=== PATIENT | female | born 1945 | race Caucasian/White ===

== ENCOUNTER 2019-11-10 04:53 | Inpatient (IN) | payer MEDICARE, OTHER ==
[~2019-11-10] VITALS: Ht 170.2 cm; Wt 77.2 kg
[2019-11-10] MEDS ORDERED: ONDANSETRON 2MG/ML, 2ML IVPush ONE ×2 (05:30→08:30)
[2019-11-10] MEDS: PLEASE ENTER ALLERGIES MC SCH ×2 (05:30→07:27)
[2019-11-10] MEDS ORDERED: MORPHINE SULFATE 4 MG/ML, 1ML IVPush PRN ×2 (05:30→17:00)
[2019-11-10] MEDS ORDERED: PROAIR (05:40)
[2019-11-10] MEDS ORDERED: MORPHINE SULFATE 4 MG/ML, 1ML ONE (05:44)
[2019-11-10] MEDS ORDERED: ONDANSETRON 2MG/ML, 2ML ONE ×2 (05:44→08:12)
[2019-11-10] MEDS ORDERED: OMNIPAQUE 350 MG/ML, 75ML BOTTLE ONE (05:50)
[2019-11-10 06:14] LABS: FREE T4 (FREE THYROXINE) 1.12 ng/dL (0.76-1.46); TROPONIN I < 0.015 ng/mL (0.000-0.045)
--- NOTE | 2019-11-10 06:15 | NUR ---
PT AWARE THAT WE NEED A URINE SAMPLE NEXT TIME SHE USES BATHROOM. PT PROVIDED A URINE CUP
--- NOTE | 2019-11-10 06:35 | NUR ---
PT RESTING IN BED, PT HAS NO WANTS OR NEEDS AT THIS TIME, PT ON MONITOR AND DEVELOPMENT ANALYST WILL CONTINUE TO MONITOR PT VITALS
[2019-11-10] MEDS ORDERED: FUROSEMIDE 20 MG/2 ML IV ONE (07:00)
--- NOTE | 2019-11-10 07:20 | NUR ---
TOOK REPORT FROM EDUARDO FERNANDEZ, ASSUME CARE AT THIS TIME. HOSPITALIST IN ROOM
--- NOTE | 2019-11-10 07:34 | NUR ---
SHER RAINEY MD AT BEDSIDE FOR LOW BP AND INCREASED SHARP CP
--- NOTE | 2019-11-10 07:36 | NUR ---
HOLD SHER REYES MD. GIVING 500ML NS PER MD
--- NOTE | 2019-11-10 08:11 | NUR ---
SHER RAINEY MD AT BEDSIDE FOR LOW BP
[2019-11-10] MEDS ORDERED: SODIUM CHLORIDE 0.9% 500 ML IV SCH (08:13)
--- NOTE | 2019-11-10 08:13 | NUR ---
GIVING 500ML NS PER MD AND 4 ZOFRAN
--- NOTE | 2019-11-10 08:14 | NUR ---
REPEAT EKG IN ROOM
[2019-11-10] MEDS ORDERED: DIGOXIN 0.25 MG/ML, 2ML ONE (08:26)
[2019-11-10] MEDS ORDERED: DIGOXIN 0.25 MG/ML, 2ML IVPush ONE ×3 (09:00→17:30)
[2019-11-10] MEDS ORDERED: ONDANSETRON ODT 4 MG PO PRN (10:00)
[2019-11-10] MEDS ORDERED: ONDANSETRON 2MG/ML, 2ML IVPush PRN (10:00)
[2019-11-10] MEDS ORDERED: ACETAMINOPHEN 325 MG TABLET PO PRN (10:00)
[2019-11-10 10:24] LABS: BASOPHILS # (AUTO) 0.05 x10^3/uL (0-0.1); BASOPHILS % (AUTO) 1 % (0-1); EOSINOPHILS # (AUTO) 0.02 x10^3/uL (0-0.4); EOSINOPHILS % (AUTO) 0 % (1-7); LYMPHOCYTES % (AUTO) 20 % (22-44); MD NO; MEAN CORPUSCULAR HEMOGLOBIN 28.6 pg (27.0-34.8); MEAN CORPUSCULAR HGB CONC 32.1 g/dL (32.4-35.8); MEAN CORPUSCULAR VOLUME 89.3 fL (80-100); MEAN PLATELET VOLUME 8.8 fL (7.4-10.4); MONOCYTES # (AUTO) 0.68 x10^3/uL (0.2-0.8); MONOCYTES % (AUTO) 8 % (2-9); NEUTROPHILS % (AUTO) 71 % (42-75); PLATELET COUNT 218 x10^3/uL (130-400); RED BLOOD COUNT 4.31 x10^6/uL (3.82-5.3); RED CELL DISTRIBUTION WIDTH 14.5 % (9.6-15.2)
--- NOTE | 2019-11-10 10:29 | NUR ---
HOSPITAL BED PUT IN ROOM
[2019-11-10 10:34] LABS: ALANINE AMINOTRANSFERASE 43 U/L (12-78); ALBUMIN 3.2 g/dL (3.4-5.0); ANION GAP 9 mmol/L (5-15); CALCIUM 8.5 mg/dL (8.5-10.1); CHLORIDE 111 mmol/L (98-107)
[2019-11-10 10:36] LABS: ALKALINE PHOSPHATASE 89 U/L (45-117); BILIRUBIN,TOTAL 1.4 mg/dL (0.2-1.0); TOTAL PROTEIN 6.3 g/dL (6.4-8.2)
[2019-11-10] MEDS ORDERED: RIVAROXABAN 20 MG TABLET ONE (11:40)
[2019-11-10] MEDS: RIVAROXABAN 20 MG TABLET PO SCH ×2 (11:43→17:00)
[2019-11-10 12:08] VITALS: BP 107/66
[2019-11-10 12:19] VITALS: BP 107/66
[2019-11-10 13:10] VITALS: BP 118/75
[2019-11-10 13:11] LABS: MICROSCOPIC AUTO
[2019-11-10] MEDS ORDERED: POTASSIUM CHLORIDE 20 MEQ TAB.ER.PRT PO ONE (16:30)
[2019-11-10] MEDS ORDERED: MORPHINE SULFATE 4 MG/ML, 1ML IVPush ONE (17:00)
[2019-11-10] MEDS ORDERED: NITROGLYCERIN 0.4 MG/SPRAY SL PRN (17:00)
[2019-11-10] MEDS ORDERED: NITROGLYCERIN 0.4 MG BOTTLE (25 TABS) SL PRN (17:00)
[2019-11-10] MEDS: ACETAMINOPHEN 325 MG TABLET PO SCH ×2 (17:18→19:58)
[2019-11-10 17:39] LABS: TROPONIN I < 0.015 ng/mL (0.000-0.045)
[2019-11-10] MEDS ORDERED: AMIODARONE 150 MG in DEXTROSE 5% 100 ML IV ONE (18:00)
[2019-11-10] MEDS: AMIODARONE 450 MG in DEXTROSE 5% 241 ML IV PRN (18:22)
[2019-11-10] MEDS: FILTER 0.22 MICRON IV PRN (18:23)
[2019-11-10 18:25] VITALS: BP 121/64
[2019-11-10 19:39] VITALS: BP 108/56
[2019-11-10 20:10] VITALS: BP 115/71
[2019-11-11] MEDS: ACETAMINOPHEN 325 MG TABLET PO SCH ×6 (01:00→21:46)
[2019-11-11 02:09] VITALS: BP 107/73
[2019-11-11] MEDS: AMIODARONE 450 MG in DEXTROSE 5% 241 ML IV PRN (02:21)
[2019-11-11] MEDS: FILTER 0.22 MICRON IV PRN (02:33)
[2019-11-11] MEDS ORDERED: FUROSEMIDE 10 MG/ML ORAL SOL PO ONE (03:00)
[2019-11-11] MEDS ORDERED: FUROSEMIDE 20 MG TABLET PO ONE (03:10)
[2019-11-11 05:28] LABS: ALBUMIN 2.9 g/dL (3.4-5.0); ANION GAP 5 mmol/L (5-15); CALCIUM 8.6 mg/dL (8.5-10.1); CHLORIDE 108 mmol/L (98-107); CREATININE 0.83 mg/dL (0.55-1.02)
[2019-11-11 08:20] VITALS: BP 110/71
[2019-11-11] MEDS ORDERED: DIGOXIN 0.25 MG TABLET PO SCH (09:00)
[2019-11-11] MEDS ORDERED: FUROSEMIDE 20 MG TABLET ONE (09:26)
[2019-11-11] MEDS ORDERED: FUROSEMIDE 20 MG TABLET PO SCH (09:30)
[2019-11-11] MEDS ORDERED: FUROSEMIDE 20 MG/2 ML IV ONE ×2 (11:00→15:00)
[2019-11-11] MEDS: AMIODARONE 200 MG TABLET PO SCH ×2 (11:23→21:46)
[2019-11-11] MEDS: LISINOPRIL 5 MG TABLET PO SCH (11:24)
[2019-11-11] MEDS: RIVAROXABAN 20 MG TABLET PO SCH (13:12)
[2019-11-11 13:50] VITALS: BP 110/66
[2019-11-11] MEDS ORDERED: BISACODYL 10 MG SUPP PR PRN (15:00)
[2019-11-11] MEDS ORDERED: MAGNESIUM CITRATE 300ML ORAL SOL PO ONE (15:00)
[2019-11-11] MEDS ORDERED: LACTULOSE 20 GM/30 ML UDC PO PRN (15:00)
[2019-11-11] MEDS: LIDODERM 5% PATCH TD SCH (16:27)
[2019-11-11 16:36] VITALS: BP 107/66
[2019-11-11 19:14] VITALS: BP 105/62
[2019-11-11] MEDS: SENNA/DOCUSATE TABLET PO SCH (21:46)
[2019-11-12 01:27] VITALS: BP 133/57
[2019-11-12] MEDS: ACETAMINOPHEN 325 MG TABLET PO SCH ×6 (02:06→20:33)
[2019-11-12] MEDS: LIDODERM REMOVE PATCH NOTE XX SCH (05:00)
[2019-11-12] MEDS: METOPROLOL SUCCINATE 25 MG TAB.ER.24H PO SCH (05:49)
[2019-11-12 05:51] VITALS: BP 104/60
[2019-11-12 06:01] LABS: CHLORIDE 109 mmol/L (98-107)
[2019-11-12 06:09] LABS: ALANINE AMINOTRANSFERASE 56 U/L (12-78); ALBUMIN 2.7 g/dL (3.4-5.0); ALKALINE PHOSPHATASE 83 U/L (45-117); ANION GAP 7 mmol/L (5-15); BILIRUBIN,TOTAL 0.8 mg/dL (0.2-1.0); CALCIUM 8.3 mg/dL (8.5-10.1); TOTAL PROTEIN 5.8 g/dL (6.4-8.2)
[2019-11-12 07:51] VITALS: BP 103/61
[2019-11-12] MEDS: DOCUSATE 50 MG/5 ML, 10ML UDC NG SCH (08:14)
[2019-11-12] MEDS ORDERED: FUROSEMIDE 40 MG/4 ML IV ONE (08:30)
[2019-11-12] MEDS: AMIODARONE 200 MG TABLET PO SCH ×2 (08:45→20:34)
[2019-11-12] MEDS: DOCUSATE 100 MG CAPSULE PO SCH (08:46)
[2019-11-12] MEDS: LISINOPRIL 5 MG TABLET PO SCH (08:46)
[2019-11-12] MEDS: SODIUM CHLORIDE 0.9% 1,000 ML IV SCH (10:00)
[2019-11-12] MEDS ORDERED: MIDAZOLAM 1 MG/ML, 5ML ONE (11:03)
[2019-11-12] MEDS ORDERED: TICAGRELOR 90 MG TABLET ONE (11:03)
[2019-11-12] MEDS ORDERED: BIVALIRUDIN 250 MG ONE (11:03)
[2019-11-12] MEDS ORDERED: FENTANYL PF 100 MCG/2ML ONE (11:03)
[2019-11-12] MEDS ORDERED: VERAPAMIL 2.5 MG/ML, 2ML ONE (11:03)
[2019-11-12] MEDS ORDERED: HEPARIN 1,000 UNITS/ML, 10ML ONE (11:04)
[2019-11-12] MEDS ORDERED: LIDOCAINE-MPF 1%, 5ML ONE (11:04)
[2019-11-12] MEDS ORDERED: NITROGLYCERIN 30 MCG/ML, 20ML VIAL ONE (11:34)
[2019-11-12 15:53] VITALS: BP 103/65
[2019-11-12] MEDS: RIVAROXABAN 20 MG TABLET PO SCH (17:27)
[2019-11-12] MEDS: LIDODERM 5% PATCH TD SCH (17:27)
[2019-11-12 20:21] VITALS: BP 97/56
[2019-11-12] MEDS: SENNA/DOCUSATE TABLET PO SCH (20:34)
[2019-11-13 01:25] VITALS: BP 102/58
[2019-11-13] MEDS: ACETAMINOPHEN 325 MG TABLET PO SCH ×3 (01:29→08:42)
[2019-11-13] MEDS: LIDODERM REMOVE PATCH NOTE XX SCH (05:00)
[2019-11-13 05:36] VITALS: BP 117/77
[2019-11-13] MEDS: SODIUM CHLORIDE 0.9% 1,000 ML IV SCH (05:39)
[2019-11-13] MEDS: METOPROLOL SUCCINATE 25 MG TAB.ER.24H PO SCH (05:39)
[2019-11-13 06:43] LABS: ALANINE AMINOTRANSFERASE 52 U/L (12-78); ALBUMIN 2.8 g/dL (3.4-5.0); ANION GAP 5 mmol/L (5-15); CALCIUM 8.8 mg/dL (8.5-10.1); CHLORIDE 108 mmol/L (98-107); CREATININE 0.71 mg/dL (0.55-1.02)
[2019-11-13 06:46] LABS: ALKALINE PHOSPHATASE 87 U/L (45-117); BILIRUBIN,TOTAL 0.4 mg/dL (0.2-1.0); TOTAL PROTEIN 6.2 g/dL (6.4-8.2)
[2019-11-13] MEDS: DOCUSATE 50 MG/5 ML, 10ML UDC NG SCH (08:41)
[2019-11-13] MEDS: LISINOPRIL 5 MG TABLET PO SCH (08:47)
[2019-11-13] MEDS: AMIODARONE 200 MG TABLET PO SCH (08:47)
[2019-11-13] MEDS: DOCUSATE 100 MG CAPSULE PO SCH (08:49)
[2019-11-13 09:40] VITALS: BP 115/65
[2019-11-13] MEDS ORDERED: AMIO200T42 PO (10:02)
[2019-11-13] MEDS ORDERED: METO25TA91 PO (10:02)
[2019-11-13] MEDS ORDERED: RIVA20TA PO (10:02)
[2019-11-13] MEDS ORDERED: LISI5TAB7 PO (10:02)
[2019-11-14] MEDS ORDERED: AMIODARONE 200 MG TABLET PO SCH (09:00)
== END 2019-11-13 14:17 | disposition home or self-care (01) | DRG 286 ==
LOC: ED 06:07 → EDIP 06:51 → 5SO 11:39
PROVIDERS: ADMIT Hospitalist; ATTEND Internal Medicine
PROC: 4A023N7 Measurement of Cardiac Sampling and Pressure, Left Heart, Percutaneous Approach (ICD-10-PCS; principal; 2019-11-12)
PROC: B2111ZZ Fluoroscopy of Multiple Coronary Arteries using Low Osmolar Contrast (ICD-10-PCS; 2019-11-12)
PROC: B2151ZZ Fluoroscopy of Left Heart using Low Osmolar Contrast (ICD-10-PCS; 2019-11-12)
DX: I48.91 Unspecified atrial fibrillation (principal); I50.23 Acute on chronic systolic (congestive) heart failure; D68.69 Other thrombophilia; J45.901 Unspecified asthma with (acute) exacerbation; J98.11 Atelectasis; I50.1 Left ventricular failure, unspecified; I42.9 Cardiomyopathy, unspecified; Z88.8 Allergy status to other drugs, medicaments and biological substances; I08.1 Rheumatic disorders of both mitral and tricuspid valves; I27.20 Pulmonary hypertension, unspecified; I48.92 Unspecified atrial flutter; Z87.891 Personal history of nicotine dependence
CPT/HCPCS: 36415; 71275; 80053; 80069; 81001; 83735; 83880; 84439; 84443; 84484; 85025; 93005; 93306; 93458; 96374; 96375; 96376; 99156; 99291; C1769; C1894; G0378; J0583; J1644; J1940; J2250; J2405; J3010; J7060; Q9967; J0282; J1160; J2270; J7030